=== PATIENT | male | born 1960 | race Two or more races ===

== ENCOUNTER 2016-12-08 09:12 | Emergency (ER) | payer MEDICAID ==
[~2016-12-08] VITALS: Ht 172.7 cm; Wt 81.6 kg
[2016-12-08] VITALS (8 sets, daily range): BP systolic 112–141; BP diastolic 70–97
--- NOTE | 2016-12-08 09:11 | Emergency Room Report ---
History of Present Illness General Chief Complaint: General Complaint Source: Family Member, Medical Record, EMS Present Illness HPI Patient is a 56-year-old male brought in by EMS after increased left-sided scalp swelling. The patient reportedly been having increased drainage from his surgical site. Patient had recent brain surgery approximately one month ago at [facility]. The patient been taking desmopressin as well as anticonvulsants. The patient had prior FUNERAL ARRANGEMENT DIRECTOR shunt placement as well as a craniotomy. Patient reportedly had a fever yesterday. He had recently finished a course of Bactrim respiratory infection with Enterobacter. 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 Patient has allergy to Ancef Allergies: Coded Allergies: CEFAZOLIN (Verified Allergy, Unknown, 12/08/16) Patient History Past Medical History: none Reviewed Nursing Documentation: PMH: Agreed, PSxH: Agreed Nursing Documentation-PMH Past Medical History: No History, Except For Hx Gastrointestinal Problems: Yes - G-tube Hx Cerebrovascular Accident: Yes - ICH Hx Seizures: Yes Review of Systems All Other Systems: limited - by mental status Physical Exam Vital Signs Date Time Temp Pulse Resp B/P (MAP) Pulse Ox O2 Delivery O2 Flow Rate FiO2 12/08/16 09:03 98.1 68 16 132/95 99 Ambu-Bag Sp02 EP Interpretation: reviewed, normal Head: other - postsurgical, scalp swelling to left side Eyes: bilateral eye PERRL Neck: supple, no bony tend, tracheotomy Respiratory: normal inspection, lungs clear, normal breath sounds, no respiratory distress, no retraction, no wheezing Cardiovascular #1: regular rate, rhythm, no edema Gastrointestinal: normal inspection, normal bowel sounds, non tender, soft, no guarding, no hernia Genitourinary: no CVA tenderness Musculoskeletal: other - moves right lower extremity Neurologic: aphasia, motor weakness, other - gag reflex present, toes upgoing bilaterally with plantar response Psychiatric: normal inspection, judgement/insight normal, mood/affect normal Skin: normal inspection, normal color, no rash Procedures Critical Care Time Critical Care Time Patient had a critical medical condition which untreated could potentially result in life or limb threatening injury. Total critical care time excluding procedures approximately 45 minutes. Central Line Central Line : Consent: Verbal Central Line Lumen: triple Maximal Sterile Barrier Tech: yes cap, yes mask, yes sterile gown, yes sterile gloves, yes large sterile sheet, yes hand hygiene, yes chlorhexidine prep Central Line Postion: femoral (L) Anesthesia: Lidocaine cc's of anesthesia: 5 Complications: none Central Line Post Position: sutured, good blood return Attempts: Other - attempted left infraclavicular subclavian X2 without success Patient Tolerated: Well Complications: None Progress CXR post procedure, no pneumothorax Medical Decision Making Diagnostic Impression: Primary Impression: Cerebral edema Additional Impressions: Acute hyponatremia Hydrocephalus in adult FUNERAL ARRANGEMENT DIRECTOR (ventriculoperitoneal) shunt status Pneumonia UTI (urinary tract infection) ER Course Patient presented for scalp swelling. The differential diagnosis included was not limited to scalp infection, FUNERAL ARRANGEMENT DIRECTOR shunt malfunction, pneumonia, hydrocephalus, recurrent hemorrhage among others. Because of complexity of patient's case laboratory testing and imaging studies were ordered.CT the head read by radiology showed markedly cerebral edema as well as mass effect and multiple findings as per radiology report. The patient was discussed with [facility] who did not have any bed capacity, the patient was discussed with the [facility] and they did not have capacity to care for the patient. The patient was discussed with Dr. Mcbride at [facility] who recommended hypertonic saline for the cerebral edema and hyponatremia. The patient was noted to have no seizure activityThe patient was initially noted to have had pneumonia on CT imaging and chest x-ray. Patient was started on IV antibiotics. Repeat serum sodium was somewhat improved after IV normal saline. This was done after minimal hypertonic saline. Patient was placed on hypertonic saline do to cerebral edema. The patient will need to be rediscussed with Dr Mcbride after repeat laboratory testing. Per patient's family patient is full code. Labs Test 12/08/16 09:15 12/08/16 09:25 12/08/16 10:25 White Blood Count 6.8 K/UL (4.8-10.8) Red Blood Count 3.89 M/UL (4.70-6.10) Hemoglobin 10.8 G/DL (14.2-18.0) Hematocrit 32.0 % (42.0-52.0) Mean Corpuscular Volume 82 FL (80-99) Mean Corpuscular Hemoglobin 27.9 PG (27.0-31.0) Mean Corpuscular Hemoglobin Concent 33.9 G/DL (32.0-36.0) Red Cell Distribution Width 11.7 % (11.6-14.8) Platelet Count 197 K/UL (150-450) Mean Platelet Volume 6.9 FL (6.5-10.1) Neutrophils (%) (Auto) 80.7 % (45.0-75.0) Lymphocytes (%) (Auto) 8.0 % (20.0-45.0) Monocytes (%) (Auto) 7.1 % (1.0-10.0) Eosinophils (%) (Auto) 3.0 % (0.0-3.0) Basophils (%) (Auto) 1.2 % (0.0-2.0) Prothrombin Time 11.7 SEC (9.30-11.50) Prothromb Time International Ratio 1.1 (0.9-1.1) Activated Partial Thromboplast Time 37 SEC (23-33) Sodium Level 110 mEQ/L (135-145) Potassium Level 3.4 mEQ/L (3.4-4.9) Chloride Level 75 mEQ/L (98-107) Carbon Dioxide Level 21 mEQ/L (20-30) Anion Gap 14 (5-15) Blood Urea Nitrogen 12 mg/dL (7-23) Creatinine 0.7 mg/dL (0.7-1.2) Estimat Glomerular Filtration Rate > 60 mL/min (>60) Glucose Level 110 mg/dL (74-106) Lactic Acid Level 1.00 mmol/L (0.66-2.22) Calcium Level 8.5 mg/dL (8.6-10.2) Total Bilirubin 1.0 mg/dL (0.0-1.2) Aspartate Amino Transf (AST/SGOT) 31 U/L (5-40) Alanine Aminotransferase (ALT/SGPT) 79 U/L (3-41) Alkaline Phosphatase 144 U/L (40-129) Total Creatine Kinase 76 U/L (38-174) Creatine Kinase MB < 1.5 ng/mL (< 6.7) Creatine Kinase MB Relative Index Total Protein 7.2 g/dL (6.6-8.7) Albumin 3.4 g/dL (3.5-5.2) Globulin 3.8 g/dL Albumin/Globulin Ratio 0.8 (1.0-2.7) Urine Color Pale yellow Urine Appearance Clear Urine pH 6 (4.5-8.0) Urine Specific Vincent 1.010 (1.005-1.035) Urine Protein 3+ (NEGATIVE) Urine Glucose (UA) Negative (NEGATIVE) Urine Ketones Negative (NEGATIVE) Urine Occult Blood 4+ (NEGATIVE) Urine Nitrite Negative (NEGATIVE) Urine Bilirubin Negative (NEGATIVE) Urine Urobilinogen Normal MG/DL (0.0-1.0) Urine Leukocyte Esterase 2+ (NEGATIVE) Urine RBC 2-4 /HPF (0 - 0) Urine WBC 15-20 /HPF (0 - 0) Urine Squamous Epithelial Cells Occasional /LPF Urine Bacteria Few /HPF (NONE) Arterial Blood pH 7.437 (7.350-7.450) Arterial Blood Partial Pressure CO2 28.8 mmHg (35.0-45.0) Arterial Blood Partial Pressure O2 91.4 mmHg (75.0-100.0) Arterial Blood HCO3 19.0 mmol/L (22.0-26.0) Arterial Blood Oxygen Saturation 97.3 % (92.0-98.0) Arterial Blood Base Excess -4.2 Paramjit Test Positive EKG Diagnostic Results Rate: normal - 69 Rhythm: NSR ST Segments: no acute changes Last Vital Signs Date Time Temp Pulse Resp B/P (MAP) Pulse Ox O2 Delivery O2 Flow Rate FiO2 12/08/16 09:03 98.1 68 16 132/95 99 Ambu-Bag Status: unchanged Disposition: [facility] Condition: Critical Jonathan Sheehan Dec 08, 2016 09:11
[2016-12-08] MEDS ORDERED: Vancomycin 1.5gm/D5W 250ml 250 ML IVPB ONE (09:30)
[2016-12-08 09:48] LABS: APPEARANCE,URINE CLEAR; KETONES,URINE NEGATIVE (NEGATIVE); LEUKOCYTE ESTERASE ,URINE 2+ (NEGATIVE); NITRITE,URINE NEGATIVE (NEGATIVE); PH,URINE 6 (4.5-8.0); PROTEIN,URINE 3+ (NEGATIVE); UROBILINOGEN,URINE NORMAL MG/DL (0.0-1.0)
[2016-12-08 09:48] LABS: BASOPHILS % (AUTO) 1.2 % (0.0-2.0); MEAN CORPUSCULAR HEMOGLOBIN 27.9 PG (27.0-31.0); MEAN CORPUSCULAR HGB CONC 33.9 G/DL (32.0-36.0); MEAN CORPUSCULAR VOLUME 82 FL (80-99); MEAN PLATELET VOLUME 6.9 FL (6.5-10.1); MONOCYTES % (AUTO) 7.1 % (1.0-10.0); NEUTROPHILS % (AUTO) 80.7 % (45.0-75.0); PLATELET COUNT 197 K/UL (150-450); RED BLOOD COUNT 3.89 M/UL (4.70-6.10); RED CELL DISTRIBUTION WIDTH 11.7 % (11.6-14.8); WHITE BLOOD COUNT 6.8 K/UL (4.8-10.8)
[2016-12-08 09:53] LABS: INR 1.1 (0.9-1.1); PROTHROMBIN TIME 11.7 SEC (9.30-11.50)
[2016-12-08 09:56] LABS: ALANINE AMINOTRANSFERASE 79 U/L (3-41); ALBUMIN/GLOBULIN RATIO 0.8 (1.0-2.7); ANION GAP 14 (5-15); ASPARTATE AMINO TRANSFERASE 31 U/L (5-40); CALCIUM 8.5 mg/dL (8.6-10.2); CARBON DIOXIDE 21 mEQ/L (20-30); CHLORIDE 75 mEQ/L (98-107); CREATININE 0.7 mg/dL (0.7-1.2); GLOMERULAR FILTRATION RATE > 60 mL/min (>60); HEMOLYSIS 2; POTASSIUM 3.4 mEQ/L (3.4-4.9); TOTAL PROTEIN 7.2 g/dL (6.6-8.7)
[2016-12-08 09:58] LABS: BACTERIA,URINE FEW /HPF; SQUAMOUS EPITHELIAL CELL,UR OCCASIONAL /LPF (NONE/OCC); WBC,URINE 15-20 /HPF (0 - 0)
[2016-12-08 09:58] LABS: SODIUM 110 mEQ/L (135-145)
[2016-12-08] MEDS ORDERED: DESMOPRESSIN0.1 MG GT (10:03)
[2016-12-08] MEDS ORDERED: LEVETIRACETAM500 MG GT (10:03)
[2016-12-08 10:07] LABS: CKMB < 1.5 ng/mL (< 6.7)
[2016-12-08] MEDS ORDERED: Dexamethasone 4mg/ml vial IVP ONE (10:30)
[2016-12-08 10:34] LABS: ABG ALLEN TEST POSITIVE; ABG BASE EXCESS -4.2; ABG PCO2 28.8 mmHg (35.0-45.0)
[2016-12-08] MEDS ORDERED: REGLAN10 MG GT (10:40)
[2016-12-08] MEDS ORDERED: LABETALOL HCL100 MG GT (10:42)
[2016-12-08] MEDS ORDERED: CATAPRES0.1 MG GT (10:42)
[2016-12-08] MEDS ORDERED: EPOGEN10000 UNIT SUBQ (10:45)
[2016-12-08] MEDS ORDERED: FERROUS SU300 MG/52 GT (10:45)
[2016-12-08] MEDS ORDERED: HYDRALAZINE HCL50 MG GT (10:45)
--- NOTE | 2016-12-08 10:46 | Diagnostic Imaging Report ---
Indication: COUGH Technique: One view of the chest Comparison: none Findings: There is diffuse bilateral interstitial and airspace disease, most prominent in the retrocardiac region, where air bronchograms are evident. The pleural spaces are clear. Heart size is upper limits of normal. There is a tracheostomy. There is ventriculoperitoneal shunt tubing coursing over the right chest. This appears to be intact. Impression: Bilateral diffuse interstitial and airspace disease. Nonspecific, could represent infectious or noninfectious inflammatory process, pulmonary edema, among other possibilities Ventricular peritoneal shunt. Visualized portions of the tubing appear intact Tracheostomy
[2016-12-08] MEDS ORDERED: PANTOPRAZOLE SO40 MG GT (10:49)
[2016-12-08] MEDS ORDERED: ACETAMINOPHEN325 M1 ORAL (10:52)
[2016-12-08] MEDS ORDERED: IPRAT-ALBUT 0.5-3 ML IH (10:55)
[2016-12-08] MEDS ORDERED: VITAMIN C500 MG/11 GT (10:57)
--- NOTE | 2016-12-08 11:07 | Diagnostic Imaging Report ---
Indications: 56-year-old male with increased left-sided scalp swelling. Increased drainage from surgical site. Recent brain surgery approximately one month ago at [facility]. Recent fever Technique: Spiral acquisitions obtained through the brain. Angled axial and coronal 5 x 5 mm slices were reconstructed. Total dose length product 1383 mGycm. CTDI vol(s) 70 mGy. Dose reduction achieved using automated exposure control Comparison: None Findings: There is a large left frontotemporoparietal craniectomy defect. A significant portion of the left frontal and parietal lobes herniated into the defect. Brain is seen herniating over 4 cm beyond the intertable of the calvarium. There is extensive edema, which largely involves the white matter. This is diffuse throughout the brain, including the infratentorial white matter of the cerebellum as well as of the brainstem. Multiple foci of hemorrhage are demonstrated. There is a 4 mm diameter focus of hemorrhage within the subcortical deep white matter within the herniated portion of the left parietal lobe. A 9 mm focus of hemorrhage is seen in the left parasagittal frontal lobe. There is a vague focus of increased attenuation in the left posterior basal ganglia region, lateral to the thalamus, which measures approximately 3 x 1.5 cm. This could represent an area of resolving hematoma. A 13 mm focus of hemorrhage is seen lateral to the right thalamus, and a 6 mm focus of hemorrhage is seen in the deep white matter peripheral to this. 7 mm focus of hemorrhage is seen in the high left parasagittal parietal deep white matter, and a 6 mm other focus of hemorrhage is seen in the right parietal cortex adjacent the entry point of the ventriculoperitoneal shunt. Some hemorrhage is seen in the right brown radiata and some hemorrhage is seen along the tract of the ventriculoperitoneal shunt, which enters via the right parietal bone, traverses the parietal lobe, has its tip in the right frontal lobe. There is question with some in the region of the suprapineal region and posterior corpus callosum. Blood is also seen within the atrium of the left lateral ventricle, and then a occipital horns of the lateral ventricles bilaterally. Most of these areas of hemorrhage appear less attenuating than would be expected if hyperacute, although the focus within the herniated portion of brain is fairly dense and could be acute There is a sizable area of even lower attenuation is seen within the left basal ganglia region,, likely representing an area of encephalomalacia. There is probably also some encephalomalacia in the right frontal periventricular deep white matter, and possibly in the left frontal periventricular deep white matter as well.. Despite the presence of ventriculoperitoneal shunt, there is enlargement of the lateral ventricles, particularly the temporal horns. The third and fourth ventricles appear significantly attenuated, however. Shunt tubing appears intact, to the extent visualized The basilar cisterns appear completely attenuated. The cortical sulci are essentially completely absent. There are skin erica overlying the left frontal scalp. No definite superficial fluid collection is demonstrated. There is approximately 12 mm of right left midline shift. There is opacification of the posterior nasal fossa and sphenoid sinuses. There is opacification of the mastoids bilaterally. Impression: Evidence of prior left frontal craniectomy. Herniation of a significant portion of the left frontal and parietal lobe beyond the craniectomy defect. Extensive diffuse cerebral edema. This appears to be largely confined to the white matter, however. Etiology uncertain, conceivably related to electrolyte abnormalities reported by referring physician Extensive mass effect, as described, with obliteration of the basilar cisterns, obliteration of the peripheral sulci, lungs-gu-tiqu midline shift, and the above-mentioned herni -- ation. This is probably predominantly due to the white matter edema. There is probably also significant contribution by the ventriculomegaly. The possibility of impending uncal herniation should be considered As mentioned above, ventriculomegaly, despite presence of a ventriculoperitoneal shunt. Possibility of shunt dysfunction should be considered. Multiple foci of intraparenchymal hemorrhage, as described. Smaller foci may be acute or subacute. There is also a larger focus left basal ganglia, may have been hemorrhage that was really operated on. This is much lower in attenuation, and is presumably subacute Small amount of intraventricular hemorrhage bilaterally Areas of encephalomalacia, as described. That in the left basal ganglia region may be related to the original surgery. Posterior nasal fossa and bilateral mastoid opacification Comparison to outside postsurgical images is essential to assess the extent to which the above findings represent acute findings versus ongoing postsurgical changes Findings discussed previously with Dr. Sheehan The CT scanner at [facility] is accredited by the [employer] and the scans are performed using protocols designed to limit radiation exposure to as low as reasonably achievable to attain images of sufficient resolution adequate for diagnostic evaluation.
[2016-12-08] MEDS ORDERED: UTI STAT GT (11:12)
[2016-12-08] MEDS ORDERED: DULCOLAX10 MG RC (11:13)
[2016-12-08] MEDS ORDERED: FLEET ENEMA133 ML RECTAL (11:13)
[2016-12-08] MEDS ORDERED: COLACE100 MG GT (11:13)
--- NOTE | 2016-12-08 11:35 | Diagnostic Imaging Report ---
Indication: Abdominal pain Technique: Spiral acquisitions obtained through the abdomen and pelvis. No oral contrast utilized, per emergency room physician request. No IV contrast utilized, per referring physician request. Multiplanar reconstructions were generated. Total dose length product 1012 mGycm. CTDIvol(s) 17 mGy. Dose reduction achieved using automated exposure control Comparison: None Findings: Appendix is prominent in caliber, measuring up to 7 mm in diameter, the there is no periappendiceal inflammation. The colon is diffusely upper limits of normal in caliber, gas and fluid filled in the ascending, transverse, and descending colon, stool filled distally. The distal sigmoid is mildly distended. No small bowel distention is evident. Small bowel loops are somewhat fluid-filled, however. The stomach is fluid-filled. There is a gastrostomy. There is no evidence of diverticulosis or diverticulitis. No free or loculated intraperitoneal air or fluid. There is ventriculoperitoneal shunt tubing, enters the peritoneal space in the right lower quadrant, tip in the left paracolic gutter. There is a very small amount of fluid inferior to the tip of the tubing within the left paracolic gutter. Trace peritoneal fluid is also seen adjacent to the tip of the liver. Lack of IV contrast limits assessment of the solid organs. The liver, gallbladder, bile ducts pancreas are all unremarkable. The spleen demonstrates a calcification, presumably granulomas, within its parenchyma. Bilateral adrenals and bilateral kidneys are unremarkable. A phlebolith is seen within a left renal venous branch. No renal or ureteral calculi, hydronephrosis, or hydroureter. There is a Orr catheter within the bladder. Air within the bladder likely relates to the presence of the Orr catheter. No pelvic mass or adenopathy. There are prostatic calcifications. There is extensive consolidation and atelectasis of the visualized lower lobes of the lungs. No definite pleural fluid. The heart is mildly enlarged. There is a pericardial effusion. The bones demonstrate bilateral L4 spondylolysis, minimal grade 1 L4 on L5 spondylolisthesis. The bones are otherwise unremarkable. Impression: Ventriculoperitoneal shunt tubing appears intact. Small amount of intraperitoneal fluid. Most likely related to discharge from the ventriculoperitoneal shunt Fluid-filled normal caliber small bowel loops, diffusely fluid-filled prominent colon, some liquid stool distally. Findings may reflect mild enteritis/colitis changes Extensive consolidation and atelectasis of the visualized lower lobes of the lungs. Reflect pneumonia versus extensive pulmonary edema, among other possibilities. Mild cardiomegaly Pericardial effusion Other findings as noted, including prostatic calcifications, Orr catheter, air in the bladder likely related to the Orr catheter, splenic granuloma, gastrostomy Findings previously discussed by phone with Dr. Sheehan The CT scanner at [facility] is accredited by the [employer] and the scans are performed using protocols designed to limit radiation exposure to as low as reasonably achievable to attain images of sufficient resolution adequate for diagnostic evaluation.
[2016-12-08] MEDS ORDERED: NaCl 3% 500ml 250 ML IVPB ONE (12:15)
[2016-12-08] MEDS ORDERED: Cefepime HCl 1 GM in D5W 55 ML IVPB ONE (12:15)
[2016-12-08] MEDS ORDERED: Lidocaine 1% MPF 10mg/ml 5ml ONE (12:19)
[2016-12-08] MEDS ORDERED: Cefepime 1gm vial ONE (12:22)
[2016-12-08] MEDS ORDERED: Lidocaine 1% MPF 10mg/ml 5ml INJ ONE (12:30)
[2016-12-08 14:18] LABS: ALANINE AMINOTRANSFERASE 65 U/L (3-41); ANION GAP 14 (5-15); ASPARTATE AMINO TRANSFERASE 25 U/L (5-40); CALCIUM 7.4 mg/dL (8.6-10.2); CARBON DIOXIDE 19 mEQ/L (20-30); CHLORIDE 81 mEQ/L (98-107); CREATININE 0.6 mg/dL (0.7-1.2); GLOMERULAR FILTRATION RATE > 60 mL/min (>60); HEMOLYSIS 14; POTASSIUM 3.4 mEQ/L (3.4-4.9); TOTAL PROTEIN 5.9 g/dL (6.6-8.7)
[2016-12-08 14:25] LABS: SODIUM 114 mEQ/L (135-145)
--- NOTE | 2016-12-08 14:57 | Diagnostic Imaging Report ---
Indication: SOB STATUS post attempted central line placement Technique: One view of the chest Comparison: 3-1/2 hours earlier Findings: Again demonstrated is bilateral interstitial and alveolar parenchymal disease, appearing unchanged. No pneumothorax. Tracheostomy, right sided ventriculoperitoneal shunt tubing is again demonstrated Impression: No evidence of pneumothorax, post attempted central line placement Stable findings as described
[2016-12-08 16:56] LABS: ALANINE AMINOTRANSFERASE 59 U/L (3-41); ANION GAP 13 (5-15); ASPARTATE AMINO TRANSFERASE 23 U/L (5-40); CALCIUM 7.1 mg/dL (8.6-10.2); CARBON DIOXIDE 18 mEQ/L (20-30); CHLORIDE 103 mEQ/L (98-107); CREATININE 0.6 mg/dL (0.7-1.2); GLOMERULAR FILTRATION RATE > 60 mL/min (>60); HEMOLYSIS 4; POTASSIUM 3.5 mEQ/L (3.4-4.9); SODIUM 134 mEQ/L (135-145); TOTAL PROTEIN 5.8 g/dL (6.6-8.7)
--- NOTE | 2016-12-11 14:53 | Cardiology Report ---
APPROVED REPORT EKG Measurement Heart [id number] Sinus rhythm with 1st degree AV block Left axis deviation Incomplete right bundle branch block Abnormal ECG
== END 2016-12-08 20:07 | disposition short-term general hospital (02) ==
LOC: EDBD 09:12 → EMR 09:30
DX: G93.6 Cerebral edema (principal); E87.1 Hypo-osmolality and hyponatremia; G91.9 Hydrocephalus, unspecified; Z98.2 Presence of cerebrospinal fluid drainage device; J18.9 Pneumonia, unspecified organism; N39.0 Urinary tract infection, site not specified; R47.01 Aphasia; R53.1 Weakness; Z88.1 Allergy status to other antibiotic agents; Z93.1 Gastrostomy status
CPT/HCPCS: 36415; 36600; 70450; 71010; 74176; 80053; 81003; 82550; 82553; 82803; 82962; 83605; 85025; 85610; 85730; 87040; 87081; 87086; 87181; 93005; 94002; 94003; 96361; 96365; 96366; 96375; 99291; J0692; J1100; J1956; J3370; Z7502